=== PATIENT | female | born 1935 | race Caucasian/White ===

== ENCOUNTER 2017-07-21 11:39 | Inpatient (IN) | payer OTHER ==
[2017-07-21] VITALS (7 sets, daily range): BP systolic 100–141; BP diastolic 41–69
[~2017-07-21] VITALS: Ht 160 cm; Wt 58.1 kg
[2017-07-21] MEDS ORDERED: THYROID MED (11:54)
[2017-07-21] MEDS ORDERED: BIPOLAR MED (11:54)
[2017-07-21 12:36] LABS: ANION GAP 5 mmol/L (7-16); BUN 17 mg/dL (7-18); CALCIUM 8.7 mg/dL (8.5-10.1); CHLORIDE 106 mmol/L (98-107); CO2 31 mmol/L (21-32); CREATININE 1.6 mg/dL (0.6-1.3); GLUCOSE 97 mg/dL (70-99); POTASSIUM 4.6 mmol/L (3.5-5.1); SODIUM 142 mmol/L (136-145)
[2017-07-21 12:38] LABS: HEMATOCRIT 41.3 % (37.0-47.0); HEMOGLOBIN 13.6 gm/dL (12.0-15.0); MCH 30.8 pg (26.0-34.0); MCHC 32.9 g/dL (28.0-37.0); MCV 93.6 fL (80.0-100.0); MPV 8.2 fl. (7.2-11.1); NUCLEATED RBCS 0 /100WBC; PLATELET COUNT* 227 thou/uL (150-400); RBC 4.41 mil/uL (4.20-5.00); RDW-CV 17.1 % (10.5-14.5); WBC 11.4 thou/uL (4.0-11.0)
[2017-07-21 12:43] LABS: ALBUMIN 3.2 g/dL (3.4-5.0); ALKALINE PHOSPHATASE 100 U/L (46-116); LIPASE 79 U/L (73-393); SGOT 27 U/L (15-37); SGPT 22 U/L (30-65); TOTAL BILIRUBIN 0.4 mg/dL (<0.1-1.0); TOTAL PROTEIN 6.8 g/dL (6.4-8.2); TROPONIN-I LEVEL <0.06 ng/mL (<0.06)
[2017-07-21 13:19] LABS: ABSOLUTE EOSINOPHILS 0.1 thou/uL (0.0-0.7); ABSOLUTE LYMPHOCYTES 1.1 thou/uL (0.8-5.3); ABSOLUTE MONOCYTES 0.2 thou/uL (0.0-1.2); ABSOLUTE NEUTROPHILS 9.9 thou/uL (1.6-8.1); ANISOCYTOSIS 1+; PLATELET ESTIMATE ADEQUATE
[2017-07-21 13:37] LABS: URINE BILIRUBIN NEGATIVE (Negative); URINE BLOOD NEGATIVE (Negative); URINE CLARITY CLEAR; URINE COLOR STRAW; URINE GLUCOSE-RANDOM NEGATIVE (Negative); URINE KETONES NEGATIVE (Negative); URINE LEUKOCYTES NEGATIVE (Negative); URINE NITRITE POSITIVE (Negative); URINE PROTEIN NEGATIVE (Negative); URINE UROBILINOGEN 0.2 E.U./dl (0.2-1.0)
[2017-07-21 13:51] LABS: SQUAMOUS 0-3 Few /LPF (0-3)
[2017-07-21 13:52] LABS: BACTERIA 1-9 Few /HPF (None Seen); CASTS None Seen /LPF (None Seen); CRYSTALS None Seen /LPF (None Seen); MUCUS None Seen strn/LPF (None Seen); URINE RBC 0-2 Rare /HPF (0-2); URINE WBC None Seen /HPF (0-5)
[2017-07-21 14:52] LABS: PROTIME 10.1 Seconds (9.20-11.50)
[2017-07-21] MEDS ORDERED: SYNTHROID50 MCG PO (15:37)
[2017-07-21] MEDS ORDERED: LAMICTAL100 MG PO (15:37)
[2017-07-22] VITALS (9 sets, daily range): BP systolic 87–125; BP diastolic 43–72
--- NOTE | 2017-07-22 11:48 | EKG ---
[place] [address] ELECTROCARDIOGRAM REPORT Name: JAQUELINE DALEY Room: [address] IN M.R.#: [id number] Admission: 07/21/17 Attend Phys: Tre Quinonez MD Discharge: Date of : 35 Report #: [id number] THIS REPORT FOR: //name// [facility] Test Date: 2017-07-21 Test Time: 15:19:45 Pat Name: JAQUELINE DALEY Department: Room: [address] Gender: F Equalizer Operator: 27 : 1935 Requested By: Koby Hoskins Order Number: [id number] Reading MD: Raúl Donaldson Measurements Intervals [place] Rate: 68 P: WI: QRS: 53 QRSD: 108 T: 58 QT: 457 QTc: 487 Interpretive Statements Normal Sinus Rhythm, PACs Abnormal R-wave progression, early transition Minimal ST elevation, anterior leads Borderline prolonged QT interval No previous ECG available for comparison Electronically Signed On 07-22-2017 11:48:31 CDT by Raúl Donaldson [email or web address] <ELECTRONICALLY SIGNED> By: Raúl Donaldson MD, [facility] 07/22/17 1148 1519 1519 Raúl Donaldson MD, [facility] /EPI
--- NOTE | 2017-07-22 13:43 | 2DMMODE ---
[place] [address] 2 D/M-MODE ECHOCARDIOGRAM Name: JAQUELINE DALEY Room: [address] IN [facility]#: [id number] Admission: 07/21/17 Attend Phys: Tre Quinonez, Discharge: Date of : 35 Date of Service: 07/22/17 1343 Report #: [id number] THIS REPORT FOR: //name// APPROVED REPORT Study performed: 07/22/2017 10:13:20 EXAM: Comprehensive 2D, Doppler, and color-flow Echocardiogram Patient Location: In-Patient Room #: [facility] Status: routine BSA: 1.60 HR: 48 bpm BP: 125/59 mmHg Rhythm: Atrial Fibrillation Other Information Technically limited study due to off axis imaging. Indications Atrial Fibrillation 2D Dimensions LVEF(%): 62.68 (>50%) LVOT Diam: 18.60 (18-24mm) LVDd: 38.62 mm PWd: 8.44 (7-11mm) LVDs: 25.75 (25-40mm) Aortic Root: 25.45 mm Sharif's LVEF: 62.68 % Volumes Left Atrial Volume (Systole) LA ESV Index: 19.40 mL/m2 Aortic Valve AoV Peak Alberto.: 1.32 m/s AO Peak Gr.: 6.93 mmHg LVOT Max P.51 mmHg AO Mean Gr.: 3.67 mmHg LVOT Mean P.05 mmHg LVOT Max V: 0.79 m/s AO V2 VTI: 25.66 cm LVOT Mean V: 0.47 m/s WILLIAN (VTI): 1.61 cm2 LVOT V1 VTI: 15.18 [place] [address] 2 D/M-MODE ECHOCARDIOGRAM Name: EDIJAQUELINE Rm Room: [address] IN .R.#: [id number] Admission: 07/21/17 Attend Phys: Tre Quinonez, Discharge: Date of : 35 Date of Service: 07/22/17 1343 Report #: [id number] Lateral E' Alberto.: 0.16 m/s Pulmonary Valve PV Peak Alberto.: 0.65 m/s PV Peak Gr.: 1.68 mmHg Tricuspid Valve TR Peak Gr.: 29.16 mmHg RVSP: 34.00 mmHg Left Ventricle The left ventricle is normal size. There is normal LV segmental wall motion. Regional wall motion is not well visualized. There is normal left ventricular wall thickness. Left ventricular systolic function is normal. The left ventricular ejection fraction is within the normal range. LVEF is 50-55%. This study is not technically sufficient to allow evaluation of the LV diastolic function due to atrial fibrillation. Right Ventricle The right ventricle is normal size. The right ventricular systolic function is normal. Atria The left atrium size is normal. The right atrium size is normal. Aortic Valve Mild aortic valve sclerosis. Aortic valve is not well visualized. No aortic regurgitation is present. Mild aortic stenosis. Mitral Valve Mitral valve leaflets are thickened. Severe mitral annular calcification. Mild mitral regurgitation. No evidence of mitral valve stenosis. Tricuspid Valve The tricuspid valve is normal in structure. Mild tricuspid regurgitation. The RVSP is 30-35 mmHg. Pulmonic Valve The pulmonary valve is normal in structure. There is no pulmonic valvular regurgitation. Great Vessels The aortic root is normal in size. IVC is normal in size and collapses with >50% [place] [address] 2 D/M-MODE ECHOCARDIOGRAM Name: JAQUELINE DALEY Room: [address] IN ..#: [id number] Admission: 07/21/17 Attend Phys: Tre Quinonez, Discharge: Date of : 35 Date of Service: 07/22/17 1343 Report #: [id number] Pericardium There is no pericardial effusion. <Conclusion> LVEF is 50-55%. There is normal LV segmental wall motion. Regional wall motion is not well visualized. Mild aortic stenosis. No aortic regurgitation is present. Mild tricuspid regurgitation. The RVSP is 30-35 mmHg. No evidence of mitral valve stenosis. Mild mitral regurgitation. <ELECTRONICALLY SIGNED> By: Raúl Donaldson MD, FACC 07/22/17 1343 42 42 Raúl Donaldson MD, FACC /INF
[2017-07-23] VITALS: BP 113/53
[2017-07-23 04:00] VITALS: BP 126/56
[2017-07-23 04:08] LABS: HEMATOCRIT 37.6 % (37.0-47.0); HEMOGLOBIN 12.3 gm/dL (12.0-15.0); MCH 30.9 pg (26.0-34.0); MCHC 32.7 g/dL (28.0-37.0); MCV 94.8 fL (80.0-100.0); MPV 8.4 fl. (7.2-11.1); RBC 3.97 mil/uL (4.20-5.00); RDW-CV 17.1 % (10.5-14.5); WBC 10.4 thou/uL (4.0-11.0)
[2017-07-23 04:16] LABS: CALCIUM 7.9 mg/dL (8.5-10.1); CREATININE 1.3 mg/dL (0.6-1.3); POTASSIUM 4.6 mmol/L (3.5-5.1)
--- NOTE | 2017-07-23 07:57 | CON ---
[address] [address] CONSULTATION Name: JAQUELINE DALEY Room: [address] IN M.R.#: [id number] Admission: 07/21/17 Attend Phys: Tre Quinonez MD Discharge: Date of : 35 Report #: [id number] THIS REPORT FOR: //name// CC: Tre Arcos DICTATED BY: Lucas Tripp REASON FOR CONSULTATION: Left hip pain. HISTORY OF PRESENT ILLNESS: The patient is an 81-year-old female who came to [facility] today after a mechanical fall. She tripped and hit her head as well as her left hip. She had severe pain thereafter. She had a laceration over her forehead that was closed in the Emergency Room. X-rays in the Emergency Room revealed a subcapital valgus impacted femoral neck fracture. She lives with her daughter, who is her DPOA. She has a history of dementia as well as bipolar disease and thyroid disease. She denies any recent illnesses or any other significant areas of pain. PAST MEDICAL HISTORY: Thyroid disease, dementia and bipolar. PAST SURGICAL HISTORY: Lumpectomy, cholecystectomy and appendectomy. SOCIAL HISTORY: The patient is a community ambulator primarily in her house, does not use any assistive device. She denies any tobacco abuse or alcohol abuse. ALLERGIES: SULFA. MEDICATIONS: Reported Synthroid. REVIEW OF SYSTEMS: Ten-point review is negative, with the exception of HPI. LABORATORY DATA: White count 11.4, hemoglobin 13.6 and platelets 227,000. Urinalysis does not show any evidence of UTI. PT/INR is pending. IMAGING: Views of the pelvis and left hip demonstrate a valgus-impacted femoral neck fracture, with no significant displacement. PHYSICAL EXAMINATION: GENERAL: The patient is alert, in no acute distress. VITAL SIGNS: In the Emergency Room, temperature is 36.1, pulse 87, respirations 16 and blood pressure 141/69. HEAD: Normocephalic and she does have a laceration over the left brow, which has been closed with suture. EYES: Pupils equal and reactive to light. ENT: [place] [address] CONSULTATION Name: JAQUELINE DALEY Room: [address] IN [facility]#: [id number] Admission: 07/21/17 Attend Phys: Tre Quinonez MD Discharge: Date of : 35 Report #: [id number] NECK: Supple, full range of motion. CHEST: Equal chest rise bilaterally. LUNGS: No respiratory distress. HEART: Good perfusion. ABDOMEN: Soft. SKIN: Warm and dry. NEUROLOGIC: Cranial nerves 2-12 grossly intact. No focal deficits. MUSCULOSKELETAL: Left hip shows no gross abnormality. She does have significant pain with internal or external rotation of the hip and positive log roll. Skin is intact over the lateral aspect of the hip. Compartments are soft and nontender. EHL, dorsiflexion and plantarflexion all have 5/5 strength. Sensation intact to light touch diffusely about the lower extremity. She has brisk capillary refill. IMPRESSION: 1. Left subcapital femoral neck fracture, valgus impacted. 2. Mechanical fall. TREATMENT PLAN: At this time, we recommend operative stabilization of her femoral neck fracture. Plan will be for cannulated screw fixation of this fracture and possible hemiarthroplasty should the fracture displace in the meantime. We discussed this at length with her DPOA, which is her daughter, who was present throughout the visit. We discussed the risks, benefits, complications, alternatives and indications to surgery, including but not limited to bleeding, infection, neurovascular injury, continued pain, need for further surgery, nonunion, malunion, hemiarthroplasty, hardware failure, DVT, PE and the inherent risk of anesthesia and she is willing to proceed. Consent is available in the chart. The patient is a DNR. All her questions were answered. <ELECTRONICALLY SIGNED> By: Koby Hoskins DO 07/23/17 0757 1516 0234Ckody Hoskins DO /janette
--- NOTE | 2017-07-23 07:57 | OP ---
[address] [address] OPERATIVE REPORT Name: JEFRY DALEYJORIE Sujey Room: [address] IN .R.#: [id number] Admission: 07/21/17 Attend Phys: Tre Quinonez MD Discharge: Date of : 35 Report #: [id number] THIS REPORT FOR: //name// CC: Tre Arcos DICTATED BY: Lucas Tripp PREOPERATIVE DIAGNOSIS: Left valgus impacted femoral neck fracture. POSTOPERATIVE DIAGNOSIS: Left valgus impacted femoral neck fracture. PROCEDURE: Left hip in situ cannulated screw fixation. SURGEON: Koby Hoskins DO ELECTRICAL PRODUCTS ENGINEER: Lucas Tripp DO ANESTHESIA: General. ESTIMATED BLOOD LOSS: 25 mL. SPECIMENS: None. COMPLICATIONS: None. CONDITION: The patient is stable to PACU. DRAINS: None. PREOP ANTIBIOTICS: 1 gram Ancef IV prior to incision. INDICATIONS: The patient is an 81-year-old female who sustained mechanical fall today and diagnosed with a valgus impacted femoral neck fracture. She was unable to ambulate secondary to pain. She is cleared for surgery medically. Her daughter is DPOA secondary to dementia and bipolar disorder. Both the patient and the daughter were informed of the risks, benefits, complications, alternatives and indications to operative fixation of the left hip versus hemiarthroplasty including but not limited to bleeding, infection, vascular injury, continued pain, need for further surgery, DVT, PE, need for hemiarthroplasty, malunion, nonunion, hardware failure and adherence to anesthesia. They are willing to proceed. DESCRIPTION OF PROCEDURE: The patient was seen in preoperative holding area and operative site initialed by surgeon. She was brought back to operative suite, placed in a well-padded table in supine position. General anesthesia was induced. The right lower extremity was positioned in the [employer] [address] OPERATIVE REPORT Name: JAQUELINE DALEY Room: [address] IN [facility]#: [id number] Admission: 07/21/17 Attend Phys: Tre Quinonez MD Discharge: Date of : 35 Report #: [id number] the left lower extremity positioned in the traction boot on the fracture table. The left hip was sterilely prepped and draped in normal fashion. Timeout was performed in usual fashion. All attendants were in agreement. Intraoperative fluoroscopy was used throughout the case. Initial x-rays were obtained showing continued position of valgus impaction of the left femoral neck. There is no displacement. A 10 blade scalpel was used to make incision through the skin and the iliotibial band. Blunt dissection was carried down to bone. Three guidewires were placed in succession in the inverted triangle fashion utilizing the guide. The inferior cannulated screw was placed along the inferior cortex of the femoral neck. AP and lateral fluoroscopic images confirmed adequate position in the subchondral bone of all 3 pins. All 3 pins were measured appropriately and the outer cortex of the bone was reamed over all 3 pins. Three partially threaded cannulated screws with washers were inserted over the existing pins with excellent purchase in the subchondral bone. The pins were removed and final fluoroscopic images were obtained showing excellent position. The wound was thoroughly irrigated with normal saline. The IT band was closed with 0 Vicryl in a [id number] fashion and the subcutaneous tissue closed with 2-0 Vicryl in simple inverted interrupted fashion followed by melvin on the skin. Dressings were placed in the form of Mepilex AG dressing, ABDs, and tape. Prior to dressing, 30 mL of 0.25% Marcaine plain were injected in the soft tissue. Sponge and needle counts were correct x 2. Dr. Hoskins was present through all critical aspects of surgery. The patient was awoken and brought to PACU in stable fashion. She tolerated the procedure well. <ELECTRONICALLY SIGNED> By: Koby Hoskins DO 07/23/17 0757 1721 1800Koby Hoskins DO /nt
[2017-07-23 08:00] VITALS: BP 96/51
[2017-07-23 12:00] VITALS: BP 93/42
[2017-07-23 17:06] VITALS: BP 93/52
[2017-07-24 00:41] VITALS: BP 132/54
[2017-07-24 04:27] VITALS: BP 106/55
[2017-07-24 04:55] LABS: HEMATOCRIT 36.7 % (37.0-47.0); MCH 30.6 pg (26.0-34.0); MCHC 32.5 g/dL (28.0-37.0); MPV 8.2 fl. (7.2-11.1); RBC 3.91 mil/uL (4.20-5.00); RDW-CV 17.5 % (10.5-14.5); WBC 10.4 thou/uL (4.0-11.0)
[2017-07-24 05:03] LABS: ALBUMIN 2.2 g/dL (3.4-5.0); CREATININE 1.2 mg/dL (0.6-1.3); POTASSIUM 4.7 mmol/L (3.5-5.1); TOTAL BILIRUBIN 0.7 mg/dL (<0.1-1.0); TOTAL PROTEIN 5.5 g/dL (6.4-8.2)
[2017-07-24 08:00] VITALS: BP 112/56
[2017-07-24 13:13] VITALS: BP 104/52
[2017-07-24 16:40] VITALS: BP 127/58
[2017-07-24 20:00] VITALS: BP 150/69
[2017-07-25 00:08] VITALS: BP 108/47
[2017-07-25 04:00] VITALS: BP 97/44
[2017-07-25 08:00] VITALS: BP 109/42
[2017-07-25 11:50] VITALS: BP 140/62
[2017-07-25 15:43] VITALS: BP 120/52
[2017-07-26] VITALS: BP 129/62
[2017-07-26 04:00] VITALS: BP 153/69
[2017-07-26 05:03] LABS: HEMATOCRIT 36.4 % (37.0-47.0); MCH 31.2 pg (26.0-34.0); MCHC 32.9 g/dL (28.0-37.0); MCV 94.9 fL (80.0-100.0); MPV 7.8 fl. (7.2-11.1); RBC 3.84 mil/uL (4.20-5.00); RDW-CV 16.8 % (10.5-14.5); WBC 8.2 thou/uL (4.0-11.0)
[2017-07-26 05:35] LABS: CALCIUM 8.2 mg/dL (8.5-10.1); MAGNESIUM 1.9 mg/dL (1.8-2.4); POTASSIUM 4.4 mmol/L (3.5-5.1)
[2017-07-26 07:45] VITALS: BP 106/54
[2017-07-26 12:00] VITALS: BP 132/64
[2017-07-26 16:00] VITALS: BP 153/61
[2017-07-26 20:00] VITALS: BP 147/74
[2017-07-27] VITALS: BP 145/67
[2017-07-27 04:00] VITALS: BP 143/71
[2017-07-27 04:34] LABS: ABSOLUTE BASOPHILS 0.1 thou/uL (0.0-0.2); ABSOLUTE EOSINOPHILS 0.2 thou/uL (0.0-0.7); ABSOLUTE LYMPHOCYTES 1.7 thou/uL (0.8-5.3); ABSOLUTE MONOCYTES 0.6 thou/uL (0.0-1.2); ABSOLUTE NEUTROPHILS 4.3 thou/uL (1.6-8.1); BASOPHILS 0.8 %; EOSINOPHILS 2.8 %; HEMATOCRIT 35.1 % (37.0-47.0); HEMOGLOBIN 11.6 gm/dL (12.0-15.0); LYMPHOCYTES 25.4 %; MCH 31.1 pg (26.0-34.0); MCHC 32.9 g/dL (28.0-37.0); MCV 94.5 fL (80.0-100.0); MONOCYTES 8.1 %; NUCLEATED RBCS 0 /100WBC; PLATELET COUNT* 244 thou/uL (150-400); POLYS 62.9 %; RBC 3.71 mil/uL (4.20-5.00); RDW-CV 16.8 % (10.5-14.5); WBC 6.8 thou/uL (4.0-11.0)
[2017-07-27 05:07] LABS: CALCIUM 7.9 mg/dL (8.5-10.1); CREATININE 0.9 mg/dL (0.6-1.3); POTASSIUM 4.3 mmol/L (3.5-5.1); TOTAL BILIRUBIN 0.5 mg/dL (<0.1-1.0); TOTAL PROTEIN 4.9 g/dL (6.4-8.2)
[2017-07-27 11:20] VITALS: BP 142/78
--- NOTE | 2017-07-27 17:34 | CARD ---
[address] [address] CARDIAC CATH REPORT Name: JAQUELINE DALEY Sujey Room: [address] IN [facility]#: [id number] Admission: 07/21/17 Attend Phys: Tre Quinonez MD Discharge: Date of : 35 Report #: [id number] THIS REPORT FOR: //name// APPROVED REPORT Study performed: 07/27/2017 12:32:33 Patient Status: In-Patient Room #: Event Personnel: Curt Su Sales Enablement Specialist, Josie Garces RN Spearer, Luly Tovar Monitor, Cristi Light (R) Scrub Exam: Insertion of Dual Chamber Permanent Pacemaker Indications: Complete Heart Block The patient is a 81 year-old female with a history of hip fracture. Conscious Sedation Start time: 13:23 End Time: 15:11 Fentanyl 25.0 mcg Versed 4.0 mg Implanted Devices: dual chamber biotronic pacemaker Procedure The patient underwent informed consent. We discussed the details of the procedure including the risks, which include, but not limited to bleeding, infection, vascular damage, cardiac perforation, and pneumothorax. She understood these risks and was willing to proceed. As such, she was brought to the EP/Cardiac Catheterization laboratory in a fasting and sedated state and prepped and draped in a sterile fashion, received IV antibiotics prior to initiation of the procedure and a venogram was performed showing patency of the left axillary vein. The patient underwent conscious sedation, with no related complications. The patient was brought to the EP/Cardiac Catheterization laboratory and the left chest and shoulder were prepped and draped in a sterile manner. During this case, Fluoroscopy and low osmolar contrast were used for imaging. The left subclavian region was infiltrated with 2% Lidocaine subcutaneous anesthesia. A transverse incision was made in the left upper chest cavity. The subcutaneous pocket was formed via blunt dissection. Percutaneous venous access was achieved and [place] [address] CARDIAC CATH REPORT Name: AJQUELINE DALEY Room: [address] IN [facility].#: [id number] Admission: 07/21/17 Attend Phys: Tre Quinonez MD Discharge: Date of : 35 Report #: [id number] the left Subclavian vein. Sheaths were positions using the modified Seldinger technique Through the introducer sheaths the atrial and ventricular lead wires were positioned in the right atrial appendage and right ventricular apex respectively. Utilizing fluoroscopic guidance, the atrial and ventricular lead wires were advanced over the wires and positioned in the right atria and right ventricle respectively. Capturing and sensing thresholds were verified. Arterial blood was first obtained. The micopuncture needle withdrawn and hemostasis achieved by direct pressure. The needle was directed more superior and venous blood was obtained. Electrode Parameters P Wave: 4.3 mv R Wave: 16.4 mv Atrial Threshold: 1.2 v @ 0.4 ms Ventricular Threshold: 0.4 v @ 0.4 ms Atrial Resistance: 429 ohm Ventricular Resistance: 663 ohm Dual Chamber The atrial and ventricular leads were then secured using 0 silk sutures. The subcutaneous pocket was irrigated with ancef antibiotic solution.The atrial and ventricular leads were attached to the appropriate receptacles on the pulse generator and set screws firmly tightened to insure adequate contact and stability. The lead and pulse generator were placed into the subcutaneous pocket. Sharp and sponge counts were confirmed to be correct. At this time the pocket was closed subcutaneously with a 2.0 Vicryl and the skin was closed with a 4.0 Vicryl. The operative site was dressed in sterile fashion with skin affix and the patient was transferred to the floor in stable condition. Complications The patient tolerated the procedure well and there were no complications associated with the procedure. Findings Estimated Blood Loss: [address] [place] [address] CARDIAC CATH REPORT Name: JAQUELINE DALEY Room: [address]#: [id number] Admission: 07/21/17 Attend Phys: Tre Quinonez MD Discharge: Date of : 35 Report #: [id number] successful placement of a dual chamber biotronic pacemaker and leads. <ELECTRONICALLY SIGNED> By: Curt Su MD, [facility] 07/27/17 1734 1734 1734David David Su MD, [facility] /INF
[2017-07-27 20:56] VITALS: BP 102/64
[2017-07-27 23:58] VITALS: BP 123/64
[2017-07-28 03:38] VITALS: BP 139/59
[2017-07-28 05:00] LABS: ABSOLUTE EOSINOPHILS 0.2 thou/uL (0.0-0.7); ABSOLUTE LYMPHOCYTES 1.5 thou/uL (0.8-5.3); ABSOLUTE MONOCYTES 0.7 thou/uL (0.0-1.2); BASOPHILS 0.6 %; EOSINOPHILS 2.5 %; HEMATOCRIT 32.3 % (37.0-47.0); HEMOGLOBIN 10.6 gm/dL (12.0-15.0); MCHC 32.8 g/dL (28.0-37.0); MCV 94.5 fL (80.0-100.0); MONOCYTES 8.8 %; MPV 7.9 fl. (7.2-11.1); NUCLEATED RBCS 0 /100WBC; PLATELET COUNT* 227 thou/uL (150-400); POLYS 68.1 %; RBC 3.41 mil/uL (4.20-5.00); RDW-CV 16.5 % (10.5-14.5); WBC 7.4 thou/uL (4.0-11.0)
[2017-07-28 05:07] LABS: ALBUMIN 2.1 g/dL (3.4-5.0); CALCIUM 8.1 mg/dL (8.5-10.1); POTASSIUM 3.8 mmol/L (3.5-5.1); TOTAL BILIRUBIN 0.4 mg/dL (<0.1-1.0); TOTAL PROTEIN 5.3 g/dL (6.4-8.2)
[2017-07-28 08:00] VITALS: BP 111/61
[2017-07-28 09:58] VITALS: BP 111/61
[2017-07-28] MEDS ORDERED: HYDROCODONE-AP1 EAC6 PO (11:00)
[2017-07-28] MEDS ORDERED: ELIQUIS2.5 MG PO (11:00)
--- NOTE | 2017-07-28 11:40 | EKG ---
[place] [address] ELECTROCARDIOGRAM REPORT Name: JAQUELINE DALEY Room: [address] ADM IN M.R.#: [id number] Admission: 07/21/17 Attend Phys: Tre Quinonez MD Discharge: Date of : 35 Report #: [id number] THIS REPORT FOR: //name// [facility] Test Date: 2017-07-28 Test Time: 08:12:20 Pat Name: JAQUELINE DALEY Department: Room: [address] Gender: F Testing Tech: BS : 1935 Requested By: Curt Su Order Number: [id number] Dread MD: Curt Su Measurements Intervals [place] Rate: 86 P: 88 NM: 201 QRS: -58 QRSD: 142 T: QT: QTc: 0 Interpretive Statements Atrial-sensed ventricular-paced complexes No further analysis attempted due to paced rhythm Compared to ECG 07/21/2017 15:19:45 paced rhythm now noted Electronically Signed On 07-28-2017 11:40:19 CDT by Curt Su [email or web address] <ELECTRONICALLY SIGNED> By: Curt Su MD, [facility] 07/28/17 1140 0812 0812 Curt Su MD, [facility] /EPI
[2017-07-28 12:00] VITALS: BP 131/70
--- NOTE | 2017-08-05 08:10 | CON ---
[address] [address] CONSULTATION Name: JAQUELINE DALEY Room: [address] IN .R.#: [id number] Admission: 07/21/17 Attend Phys: Tre Quinonez MD Discharge: 07/28/17 Date of : 35 Report #: [id number] THIS REPORT FOR: //name// CC: Tre Arcos DATE OF SERVICE: 07/22/2017 REASON FOR CONSULTATION: Bradycardia. HISTORY OF PRESENT ILLNESS: The patient is an 81-year-old female who presented with worsening hip pain and ultimately required hip surgery. She tripped apparently and fell at her apartment where she does live alone. It is in a nursing facility though. I am asked to see her because on the heart monitor, she initially presented what was felt to be atrial fibrillation and then overnight on monitor, she has been in a sinus rhythm with AV block and occasional bradycardia with pulses as low as the mid 40s overnight. Presently, she is in a sinus rhythm with third degree AV block with heart rates in the 80s. At times she is conducting 2:1. She is without complaints of orthopnea or PND and had no presymptoms of chest pain or pressure. She reports no dizziness spells. She has dementia and her daughter is her durable power of employment law attorney. Most of her history was obtained from chart record, but she can answer simple questions and does not appear that she has been short of breath or having any chest discomfort. It appears based on chart record that she does not have an underlying history of heart disease. PAST MEDICAL HISTORY: Status post orthopedic surgery for a left valgus impacted femoral neck fracture this hospitalization. She has underlying history of thyroid disease, dementia, bipolar disorder. PAST SURGICAL HISTORY: As above. She also had a prior gallbladder surgery, bipolar disorder, dementia and hypothyroidism. SOCIAL HISTORY: She is a nonsmoker. She does not drink. ALLERGIES: SULFA drugs. REVIEW OF SYSTEMS: CARDIOVASCULAR: Denies chest pain or pressure. ORTHOPEDICS: Positive as above. NEUROLOGIC: Denies slurred speech, syncope, seizures. Denies headaches, blurry vision. GASTROINTESTINAL: [place] [address] CONSULTATION Name: JAQUELINE DALEY Room: [address]#: [id number] Admission: 07/21/17 Attend Phys: Ter Quinonez MD Discharge: 07/28/17 Date of : 35 Report #: [id number] SKIN: No rashes, no edema. EYES: Denies any blurred vision or loss of vision. THROAT: Denies any dysphagia. HEMATOLOGIC: No anemia or bleeding disorders. RENAL: No history of kidney failure. ENDOCRINE: She is not known to be a diabetic. PHYSICAL EXAMINATION: VITAL SIGNS: Blood pressure is 125/59, O2 sat is on 2 liters and is 95-99%. GENERAL: This is a thin, cachectic, elderly female. She is poor historian. She is in no apparent distress. HEENT: Eyes: EOMs are intact. There is a scar in her left forehead with clean, dry sutures. NECK: There is no jugular venous distention. CARDIOVASCULAR: Regular. I cannot hear any murmur or rub. LUNGS: Clear to auscultation. ABDOMEN: Nontender. EXTREMITIES: There is no peripheral edema. There is peripheral wasting. LABORATORY DATA: Hemoglobin is 13.6, white blood cell count 11.4, platelet count is 227,000. INR is 1.0. Hemoglobin is 13.6. CT of the brain demonstrated prominence of ventricle and sulci compatible with atrophy. There is decreased attenuation in the periventricular white matter. No evidence of intracranial hemorrhage or depressed skull fracture. Hemoglobin is 13.6, white blood cell count is 11.4, platelet count is 227,000. Sodium is 142, potassium 4.6, chloride is 106, CO2 is 31, BUN is 17, creatinine is 1.6. INR is 1.0. IMPRESSION: 1. Third degree atrioventricular block. 2. Bradycardia. 3. Status post fall. 4. Status post hip surgery. 5. Dementia. At this point in time, after discussions with the patient, we will need to speak with her daughter regarding what their feelings are in regards to her functional capacity going forward and whether or not she would be a good candidate for a permanent pacemaker implantation. It does not appear that she was on any AV bro acting drugs and has underlying conduction disease. At this point, given her fall history if she does have any atrial arrhythmias, I would not recommend anticoagulation, but it does not appear that she was in atrial fibrillation at the time of presentation. <ELECTRONICALLY SIGNED> By: Curt Su MD, FACC 08/05/17 0810 0947 1314Raúl Donaldson MD, FACC /nt
== END 2017-07-28 15:25 | DRG 480 ==
LOC: M.ERS 11:39 → M.TBA-ER 13:27 → M.2W 13:27 → M.ORTHSURG 13:27 → M.2W 18:25
PROVIDERS: Family Medicine; Internal Medicine; Orthopaedic Surgery; Physician Assistant; ADMIT Internal Medicine
PROC: 0HQ1XZZ Repair Face Skin, External Approach (ICD-10-PCS; 2017-07-21)
PROC: 0QS704Z Reposition Left Upper Femur with Internal Fixation Device, Open Approach (ICD-10-PCS; 2017-07-21)
PROC: 02H63JZ Insertion of Pacemaker Lead into Right Atrium, Percutaneous Approach (ICD-10-PCS; principal; 2017-07-27)
PROC: 02HK3JZ Insertion of Pacemaker Lead into Right Ventricle, Percutaneous Approach (ICD-10-PCS; principal; 2017-07-27)
PROC: 0JH606Z Insertion of Pacemaker, Dual Chamber into Chest Subcutaneous Tissue and Fascia, Open Approach (ICD-10-PCS; principal; 2017-07-27)
DX: M80.052A Age-related osteoporosis with current pathological fracture, left femur, initial encounter for fracture (principal); N17.0 Acute kidney failure with tubular necrosis; G93.40 Encephalopathy, unspecified; I44.2 Atrioventricular block, complete; E44.0 Moderate protein-calorie malnutrition; J98.11 Atelectasis; F03.90 Unspecified dementia, unspecified severity, without behavioral disturbance, psychotic disturbance, mood disturbance, and anxiety; N18.9 Chronic kidney disease, unspecified; F31.9 Bipolar disorder, unspecified; Z66 Do not resuscitate; E03.9 Hypothyroidism, unspecified; R53.81 Other malaise; G31.9 Degenerative disease of nervous system, unspecified; S01.81XA Laceration without foreign body of other part of head, initial encounter; I48.91 Unspecified atrial fibrillation; W01.0XXA Fall on same level from slipping, tripping and stumbling without subsequent striking against object, initial encounter; Y93.89 Activity, other specified; Y92.038 Other place in apartment as the place of occurrence of the external cause; Y99.8 Other external cause status; Z68.22 Body mass index [BMI] 22.0-22.9, adult; Z90.49 Acquired absence of other specified parts of digestive tract; Z98.890 Other specified postprocedural states; Z88.2 Allergy status to sulfonamides; Z79.899 Other long term (current) drug therapy

== ENCOUNTER → 2017-09-07 | Outpatient (CLI) | payer OTHER ==
[~2017-09-07] MED LIST: BIPOLAR MED; ELIQUIS2.5 MG PO; HYDROCODONE-AP1 EAC6 PO; LAMICTAL100 MG PO; SYNTHROID50 MCG PO; THYROID MED
== END ==
LOC: M.RAD 09:45
DX: R13.12 Dysphagia, oropharyngeal phase (principal); R09.89 Other specified symptoms and signs involving the circulatory and respiratory systems

== ENCOUNTER 2018-02-13 18:21 | Inpatient (IN) | payer OTHER ==
[~2018-02-13] VITALS: Ht 160 cm; Wt 53.1 kg
[2018-02-13 18:23] VITALS: BP 140/70
[2018-02-13 18:50] LABS: ABSOLUTE BASOPHILS 0.1 thou/uL (0.0-0.2); ABSOLUTE EOSINOPHILS 0.1 thou/uL (0.0-0.7); ABSOLUTE LYMPHOCYTES 2.3 thou/uL (0.8-5.3); ABSOLUTE MONOCYTES 0.8 thou/uL (0.0-1.2); ABSOLUTE NEUTROPHILS 6.3 thou/uL (1.6-8.1); BASOPHILS 0.8 %; HEMATOCRIT 37.3 % (37.0-47.0); HEMOGLOBIN 11.7 gm/dL (12.0-15.0); LYMPHOCYTES 24.3 %; MCHC 31.4 g/dL (28.0-37.0); MCV 89.1 fL (80.0-100.0); MONOCYTES 8.5 %; MPV 7.7 fl. (7.2-11.1); NUCLEATED RBCS 0 /100WBC; PLATELET COUNT* 249 thou/uL (150-400); POLYS 65.4 %; RBC 4.18 mil/uL (4.20-5.00); RDW-CV 18.5 % (10.5-14.5); WBC 9.6 thou/uL (4.0-11.0)
[2018-02-13 19:01] LABS: CALCIUM 8.7 mg/dL (8.5-10.1); CREATININE 2.4 mg/dL (0.6-1.3); POTASSIUM 3.9 mmol/L (3.5-5.1)
[2018-02-13 19:06] LABS: ALBUMIN 3.3 g/dL (3.4-5.0); TOTAL BILIRUBIN 0.3 mg/dL (<0.1-1.0); TOTAL PROTEIN 6.7 g/dL (6.4-8.2)
[2018-02-13 20:52] LABS: URINE BILIRUBIN NEGATIVE (Negative); URINE BLOOD TRACE (Negative); URINE CLARITY CLEAR; URINE COLOR YELLOW; URINE GLUCOSE-RANDOM NEGATIVE (Negative); URINE KETONES NEGATIVE (Negative); URINE LEUKOCYTES-REFLEX 2+ (Negative); URINE NITRITE-REFLEX POSITIVE (Negative); URINE PROTEIN NEGATIVE (Negative); URINE SPECIFIC GRAVITY 1.015 (1.005-1.030); URINE UROBILINOGEN 0.2 E.U./dl (0.2-1.0)
[2018-02-13 20:59] LABS: SQUAMOUS >10 Many /LPF (0-3)
[2018-02-13 21:00] LABS: HYALINE CASTS >10 Many /LPF (None Seen); MUCUS 0-3 Light strn/LPF (None Seen)
[2018-02-13 21:01] LABS: CRYSTALS None Seen /LPF (None Seen); URINE RBC 0-2 Rare /HPF (0-2); URINE WBC-REFLEX >25 Many /HPF (0-5)
[2018-02-13 21:34] VITALS: BP 137/62
[2018-02-13 22:00] VITALS: BP 135/63
[2018-02-14 07:36] VITALS: BP 119/53
--- NOTE | 2018-02-14 10:26 | EKG ---
[place] [address] ELECTROCARDIOGRAM REPORT Name: JAQUELINE DALEY Room: [address] ADM [place] .R.#: [id number] Admission: 02/13/18 Attend Phys: Dmitriy Dickey MD Discharge: Date of : 35 Report #: [id number] THIS REPORT FOR: //name// [facility] ED Test Date: 2018-02-13 Test Time: 20:01:54 Pat Name: JAQUELINE DALEY Department: Room: [facility] Gender: F Director Of Design: AP : 1935 Requested By: Axel Cradenas Order Number: [id number] : Curt Su Measurements Intervals [place] Rate: 68 P: 34 FL: 295 QRS: -74 QRSD: 177 T: 85 QT: 479 QTc: 510 Interpretive Statements atrial sensed and Ventricular-paced complexes No further analysis attempted due to paced rhythm Compared to ECG 07/28/2017 08:12:20 rate slowed Electronically Signed On 02-14-2018 10:26:12 BEHAVIORAL HEALTH SPECIALIST by Curt Su [email or web address] <ELECTRONICALLY SIGNED> By: Curt Su MD, FACC 02/14/18 1026 00 00 Curt Su MD, FACC /EPI
[2018-02-14 16:00] VITALS: BP 135/79
[2018-02-15] VITALS: BP 120/67
[2018-02-15 03:44] LABS: ABSOLUTE BASOPHILS 0.1 thou/uL (0.0-0.2); ABSOLUTE EOSINOPHILS 0.2 thou/uL (0.0-0.7); ABSOLUTE LYMPHOCYTES 1.8 thou/uL (0.8-5.3); ABSOLUTE MONOCYTES 0.5 thou/uL (0.0-1.2); ABSOLUTE NEUTROPHILS 3.5 thou/uL (1.6-8.1); BASOPHILS 1.5 %; HEMATOCRIT 31.8 % (37.0-47.0); HEMOGLOBIN 10.1 gm/dL (12.0-15.0); LYMPHOCYTES 30.5 %; MCH 28.6 pg (26.0-34.0); MCHC 31.7 g/dL (28.0-37.0); MCV 90.2 fL (80.0-100.0); MONOCYTES 7.7 %; MPV 7.9 fl. (7.2-11.1); NUCLEATED RBCS 0 /100WBC; PLATELET COUNT* 198 thou/uL (150-400); POLYS 57.3 %; RBC 3.53 mil/uL (4.20-5.00); RDW-CV 18.4 % (10.5-14.5); WBC 6.1 thou/uL (4.0-11.0)
[2018-02-15 04:21] LABS: CALCIUM 8.2 mg/dL (8.5-10.1); POTASSIUM 4.6 mmol/L (3.5-5.1)
[2018-02-15 04:23] LABS: CREATININE 1.4 mg/dL (0.6-1.3)
[2018-02-15 08:15] VITALS: BP 127/65
[2018-02-15 16:00] VITALS: BP 124/62
[2018-02-15 21:56] VITALS: BP 106/54
[2018-02-16 08:02] VITALS: BP 139/64
[2018-02-16 16:47] VITALS: BP 134/75
[2018-02-17 00:34] VITALS: BP 108/58
[2018-02-17 03:55] VITALS: BP 121/62
[2018-02-17 04:16] LABS: ABSOLUTE BASOPHILS 0.1 thou/uL (0.0-0.2); ABSOLUTE EOSINOPHILS 0.3 thou/uL (0.0-0.7); ABSOLUTE LYMPHOCYTES 1.5 thou/uL (0.8-5.3); ABSOLUTE MONOCYTES 0.4 thou/uL (0.0-1.2); ABSOLUTE NEUTROPHILS 3.5 thou/uL (1.6-8.1); BASOPHILS 1.2 %; EOSINOPHILS 5.1 %; HEMATOCRIT 32.6 % (37.0-47.0); HEMOGLOBIN 10.3 gm/dL (12.0-15.0); LYMPHOCYTES 26.1 %; MCH 28.6 pg (26.0-34.0); MCHC 31.7 g/dL (28.0-37.0); MONOCYTES 7.3 %; MPV 7.8 fl. (7.2-11.1); NUCLEATED RBCS 0 /100WBC; PLATELET COUNT* 241 thou/uL (150-400); POLYS 60.3 %; RBC 3.62 mil/uL (4.20-5.00); RDW-CV 18.6 % (10.5-14.5); WBC 5.8 thou/uL (4.0-11.0)
[2018-02-17 04:38] LABS: ALBUMIN 2.4 g/dL (3.4-5.0); CALCIUM 8.6 mg/dL (8.5-10.1); CREATININE 1.2 mg/dL (0.6-1.3); TOTAL BILIRUBIN 0.2 mg/dL (<0.1-1.0); TOTAL PROTEIN 5.3 g/dL (6.4-8.2)
[2018-02-17 09:17] VITALS: BP 132/66
[2018-02-17 16:00] VITALS: BP 143/74
[2018-02-17 19:40] VITALS: BP 115/62
[2018-02-18 08:20] VITALS: BP 101/47
[2018-02-18 14:30] VITALS: BP 101/47
[2018-02-18] MEDS ORDERED: CIPRO250 M2 PO (14:30)
== END 2018-02-18 16:13 | DRG 682 ==
LOC: M.ERS 18:21 → M.TBA-ER 20:01 → M.3W 20:01
PROVIDERS: Nurse Practitioner Family; ADMIT Internal Medicine
DX: N17.9 Acute kidney failure, unspecified (principal); R65.11 Systemic inflammatory response syndrome (SIRS) of non-infectious origin with acute organ dysfunction; N39.0 Urinary tract infection, site not specified; G93.40 Encephalopathy, unspecified; F31.9 Bipolar disorder, unspecified; F03.90 Unspecified dementia, unspecified severity, without behavioral disturbance, psychotic disturbance, mood disturbance, and anxiety; E03.9 Hypothyroidism, unspecified; B96.89 Other specified bacterial agents as the cause of diseases classified elsewhere; W18.39XA Other fall on same level, initial encounter; Y93.89 Activity, other specified; Y92.89 Other specified places as the place of occurrence of the external cause; Y99.8 Other external cause status; Z90.49 Acquired absence of other specified parts of digestive tract; Z88.2 Allergy status to sulfonamides

== ENCOUNTER 2018-06-28 09:38 | Emergency (ER) | payer OTHER ==
[~2018-06-28] VITALS: Ht 152.4 cm; Wt 51.5 kg
[~2018-06-28 09:38] MED LIST changes: +CIPRO250 M2 PO
[2018-06-28] MEDS ORDERED: ARICEPT 5 MG TAB5 MG PO (09:56)
[2018-06-28] MEDS ORDERED: RISPERDAL0.5 MG PO (09:57)
[2018-06-28] MEDS ORDERED: PRESERVISION A1 EACH PO (09:57)
[2018-06-28] MEDS ORDERED: ATIVAN0.5 MG PO (09:57)
[2018-06-28 10:05] LABS: HEMOGLOBIN 11.6 gm/dL (12.0-15.0); MCH 29.8 pg (26.0-34.0); MCHC 33.1 g/dL (28.0-37.0); MCV 89.9 fL (80.0-100.0); NUCLEATED RBCS 0 /100WBC; PLATELET COUNT* 330 thou/uL (150-400); RBC 3.89 mil/uL (4.20-5.00); RDW-CV 19.2 % (10.5-14.5); WBC 11.3 thou/uL (4.0-11.0)
[2018-06-28 10:21] LABS: APTT 24.7 Seconds (25.0-31.3); PROTIME 10.4 Seconds (9.20-11.50)
[2018-06-28 10:22] LABS: ANION GAP 4 mmol/L (7-16); BUN 13 mg/dL (7-18); CALCIUM 8.7 mg/dL (8.5-10.1); CHLORIDE 105 mmol/L (98-107); CO2 33 mmol/L (21-32); CREATININE 1.4 mg/dL (0.6-1.3); GLUCOSE 113 mg/dL (70-99); POTASSIUM 4.3 mmol/L (3.5-5.1); SODIUM 142 mmol/L (136-145); TROPONIN-I LEVEL <0.06 ng/mL (<0.06)
[2018-06-28 10:29] LABS: ALBUMIN 2.8 g/dL (3.4-5.0); ALKALINE PHOSPHATASE 245 U/L (46-116); CK-MB MASS 1.5 ng/mL (<0.5-3.6); NT-PRO BRAIN NAT PEPTIDE 1596 pg/mL (<300); SGOT 23 U/L (15-37); SGPT 16 U/L (30-65); TOTAL BILIRUBIN 0.3 mg/dL (<0.1-1.0); TOTAL PROTEIN 6.7 g/dL (6.4-8.2)
[2018-06-28 10:30] LABS: ABSOLUTE LYMPHOCYTES 0.3 thou/uL (0.8-5.3); ABSOLUTE MONOCYTES 0.6 thou/uL (0.0-1.2); ABSOLUTE NEUTROPHILS 10.4 thou/uL (1.6-8.1)
[2018-06-28 10:31] LABS: HYPOCHROMASIA 1+; MICROCYTES 2+
[2018-06-28 10:32] LABS: PLATELET ESTIMATE ADEQUATE
[2018-06-28 10:56] LABS: URINE BILIRUBIN NEGATIVE (Negative); URINE BLOOD NEGATIVE (Negative); URINE CLARITY CLEAR; URINE COLOR YELLOW; URINE GLUCOSE-RANDOM NEGATIVE (Negative); URINE KETONES NEGATIVE (Negative); URINE LEUKOCYTES-REFLEX NEGATIVE (Negative); URINE NITRITE-REFLEX NEGATIVE (Negative); URINE PROTEIN NEGATIVE (Negative); URINE SPECIFIC GRAVITY 1.015 (1.005-1.030); URINE UROBILINOGEN 0.2 E.U./dl (0.2-1.0)
[2018-06-28 11:31] VITALS: BP 117/55
--- NOTE | 2018-06-29 14:29 | EKG ---
[place] [address] ELECTROCARDIOGRAM REPORT Name: JAQUELINE DALEY Room: [facility]#: [id number] Admission: 06/28/18 Attend Phys: Discharge: 06/28/18 Date of : 35 Report #: [id number] THIS REPORT FOR: //name// [facility] ED Test Date: 2018-06-28 Test Time: 09:47:42 Pat Name: JAQUELINE DALEY Department: Room: Gender: F Well Tender: GARY : 1935 Requested By: Lionel Carrillo Order Number: [id number] MD: Cj Dyer Measurements Intervals [place] Rate: 60 P: 7 HI: 243 QRS: -69 QRSD: 172 T: 93 QT: 472 QTc: 472 Interpretive Statements Atrial-ventricular dual-paced complexes No further analysis attempted due to paced rhythm Compared to ECG 02/13/2018 20:01:54 No significant changes Electronically Signed On 06-29-2018 14:29:38 CDT by Cj Dyer [email or web address] <ELECTRONICALLY SIGNED> By: Cj Dyer MD, [facility] 06/29/18 1429 0947 0947 Cj Dyer MD, [facility] /EPI
== END 2018-06-28 11:35 | disposition short-term general hospital (02) ==
LOC: M.ERS 09:38
PROVIDERS: Family Medicine
DX: S06.6X0A Traumatic subarachnoid hemorrhage without loss of consciousness, initial encounter (principal); S02.40CA Maxillary fracture, right side, initial encounter for closed fracture; S02.31XA Fracture of orbital floor, right side, initial encounter for closed fracture; S02.40EA Zygomatic fracture, right side, initial encounter for closed fracture; F31.9 Bipolar disorder, unspecified; Z90.49 Acquired absence of other specified parts of digestive tract; E03.9 Hypothyroidism, unspecified; F03.90 Unspecified dementia, unspecified severity, without behavioral disturbance, psychotic disturbance, mood disturbance, and anxiety; Z88.2 Allergy status to sulfonamides; Z98.890 Other specified postprocedural states; W18.39XA Other fall on same level, initial encounter; Y93.89 Activity, other specified; Y92.89 Other specified places as the place of occurrence of the external cause; Y99.8 Other external cause status

== ENCOUNTER 2018-08-31 20:51 | Inpatient (IN) | payer OTHER ==
[~2018-08-31] VITALS: Ht 160 cm; Wt 49.0 kg
[~2018-08-31 20:51] MED LIST changes: +ARICEPT 5 MG TAB5 MG PO; +ATIVAN0.5 MG PO; +PRESERVISION A1 EACH PO; +RISPERDAL0.5 MG PO
[2018-08-31 21:03] VITALS: BP 131/73
[2018-08-31 21:54] LABS: HEMATOCRIT 33.8 % (37.0-47.0); HEMOGLOBIN 10.7 gm/dL (12.0-15.0); MCH 29.2 pg (26.0-34.0); MCHC 31.5 g/dL (28.0-37.0); MCV 92.7 fL (80.0-100.0); MPV 7.5 fl. (7.2-11.1); NUCLEATED RBCS 0 /100WBC; PLATELET COUNT* 265 thou/uL (150-400); RBC 3.65 mil/uL (4.20-5.00); RDW-CV 17.2 % (10.5-14.5); WBC 11.2 thou/uL (4.0-11.0)
[2018-08-31 22:01] LABS: CALCIUM 8.7 mg/dL (8.5-10.1); CREATININE 1.5 mg/dL (0.6-1.3); POTASSIUM 4.4 mmol/L (3.5-5.1)
[2018-08-31 22:03] LABS: APTT 25.3 Seconds (25.0-31.3); INR 1.1
[2018-08-31 22:12] LABS: URINE BILIRUBIN NEGATIVE (Negative); URINE BLOOD NEGATIVE (Negative); URINE CLARITY CLEAR; URINE COLOR YELLOW; URINE GLUCOSE-RANDOM NEGATIVE (Negative); URINE KETONES NEGATIVE (Negative); URINE LEUKOCYTES-REFLEX TRACE (Negative); URINE PROTEIN TRACE (Negative); URINE SPECIFIC GRAVITY >= 1.030 (1.005-1.030); URINE UROBILINOGEN 0.2 E.U./dl (0.2-1.0)
[2018-08-31 22:12] LABS: ALBUMIN 2.8 g/dL (3.4-5.0); TOTAL BILIRUBIN 0.3 mg/dL (<0.1-1.0); TOTAL PROTEIN 6.2 g/dL (6.4-8.2)
[2018-08-31 22:13] LABS: URINE NITRITE-REFLEX POSITIVE (Negative)
[2018-08-31 22:19] LABS: HYALINE CASTS >10 Many /LPF (None Seen); SQUAMOUS 4-10 Moderate /LPF (0-3)
[2018-08-31 22:20] LABS: BACTERIA-REFLEX >30 Many /HPF (None Seen); MUCUS 0-3 Light strn/LPF (None Seen); URINE WBC-REFLEX 6-15 Few /HPF (0-5); WBC CLUMPS Few (None Seen)
[2018-08-31 22:21] LABS: CRYSTALS None Seen /LPF (None Seen); URINE RBC 0-2 Rare /HPF (0-2)
[2018-08-31 22:24] LABS: ABSOLUTE LYMPHOCYTES 0.9 thou/uL (0.8-5.3); ABSOLUTE MONOCYTES 0.4 thou/uL (0.0-1.2); ABSOLUTE NEUTROPHILS 9.9 thou/uL (1.6-8.1)
[2018-08-31 22:25] LABS: ANISOCYTOSIS 1+; PLATELET ESTIMATE ADEQUATE
[2018-09-01 02:10] VITALS: BP 119/63
[2018-09-01 05:50] VITALS: BP 118/90
[2018-09-01 10:37] VITALS: BP 123/58
--- NOTE | 2018-09-01 11:23 | EKG ---
[place] [address] ELECTROCARDIOGRAM REPORT Name: JAQUELINE DALEY Room: [place] [address] ADM IN .R.#: [id number] Admission: 08/31/18 Attend Phys: Kyaw Rothman MD Discharge: Date of : 35 Report #: [id number] THIS REPORT FOR: //name// [facility] ED Test Date: 2018-08-31 Test Time: 21:49:08 Pat Name: JAQUELINE DALEY Department: Room: [facility] Gender: F Side Laster Tack: MADALYN : 1935 Requested By: Benedict Mccartney Order Number: [id number] MD: Raúl Donaldson Measurements Intervals [place] Rate: 85 P: -80 MI: 166 QRS: -67 QRSD: 173 T: 91 QT: 453 QTc: 539 Interpretive Statements Atrial-sensed ventricular-paced rhythm No further analysis attempted due to paced rhythm Baseline wander in lead(s) I,III,aVL Compared to ECG 06/28/2018 09:47:42 AV dual-paced complex(es) or rhythm no longer present Electronically Signed On 09-01-2018 11:23:39 CDT by Raúl Donaldson [email or web address] <ELECTRONICALLY SIGNED> By: Raúl Donaldson MD, FACC 09/01/18 1123 48 48 Raúl Donaldson MD, [facility] /EPI
[2018-09-01 18:25] VITALS: BP 110/72
[2018-09-01 20:00] VITALS: BP 89/48
[2018-09-02] VITALS: BP 105/57
[2018-09-02 03:54] LABS: HEMATOCRIT 26.9 % (37.0-47.0)
[2018-09-02 03:56] LABS: HEMOGLOBIN 8.6 gm/dL (12.0-15.0)
[2018-09-02 04:00] VITALS: BP 110/53
[2018-09-02 04:41] LABS: CREATININE 1.2 mg/dL (0.6-1.3); PHOSPHORUS* 3.6 mg/dL (2.5-4.9)
[2018-09-02 08:35] VITALS: BP 90/46
[2018-09-02 08:46] LABS: CALCIUM 7.9 mg/dL (8.5-10.1); CREATININE 1.1 mg/dL (0.6-1.3); POTASSIUM 4.4 mmol/L (3.5-5.1)
[2018-09-02 16:52] VITALS: BP 98/49
[2018-09-03 04:32] LABS: HEMOGLOBIN 8.3 gm/dL (12.0-15.0); MCH 30.8 pg (26.0-34.0); MCHC 33.3 g/dL (28.0-37.0); MCV 92.7 fL (80.0-100.0); MPV 7.9 fl. (7.2-11.1); RBC 2.69 mil/uL (4.20-5.00); RDW-CV 16.9 % (10.5-14.5)
[2018-09-03 04:33] LABS: CALCIUM 7.7 mg/dL (8.5-10.1); MAGNESIUM 1.9 mg/dL (1.8-2.4); POTASSIUM 4.2 mmol/L (3.5-5.1)
[2018-09-03 07:35] VITALS: BP 113/51
[2018-09-03 16:28] VITALS: BP 83/43
[2018-09-03 19:30] VITALS: BP 108/46
[2018-09-04 06:12] VITALS: BP 100/46
[2018-09-04 15:34] VITALS: BP 88/46
[2018-09-04 22:00] VITALS: BP 101/44
[2018-09-05 04:00] VITALS: BP 100/49
[2018-09-05 07:40] VITALS: BP 95/50
[2018-09-05] MEDS ORDERED: CEFUROXIME250 MG PO (07:42)
[2018-09-05] MEDS ORDERED: CALCIUM 600 +1 EAC1 PO (07:42)
[2018-09-05] MEDS ORDERED: COLACE 100 MG100 MG PO (07:42)
[2018-09-05] MEDS ORDERED: ERGOCALCIF50000 UNIT PO (07:42)
[2018-09-05] MEDS ORDERED: ASPIRIN325 PO (07:42)
[2018-09-05] MEDS ORDERED: HYDROCODON-ACE1 EAC7 PO (07:44)
[2018-09-05] MEDS ORDERED: ACETAMINOPHEN325 M1 PO (07:44)
[2018-09-05 11:10] VITALS: BP 95/50
[2018-09-05 19:30] VITALS: BP 104/45
[2018-09-06 07:30] VITALS: BP 92/52
[2018-09-06 10:03] VITALS: BP 95/50
[2018-09-06 12:03] VITALS: BP 95/50
--- NOTE | 2018-09-08 06:49 | OP ---
[address] [address] OPERATIVE REPORT Name: JAQUELINE DALEY Room: [address]#: [id number] Admission: 08/31/18 Attend Phys: Kyaw Rothman MD Discharge: 09/06/18 Date of : 35 Report #: [id number] THIS REPORT FOR: //name// CC: Precious Rothman DICTATED BY: Sergio Fitzgerald DO DATE OF SERVICE: 09/01/2018 PREOPERATIVE DIAGNOSIS: Right closed displaced intertrochanteric fracture. POSTOPERATIVE DIAGNOSIS: Right closed displaced intertrochanteric fracture. PROCEDURES: Open reduction and internal fixation of right intertrochanteric fracture with cephalomedullary nail using orthopedic implants, [place] gamma nail measuring 11 x 180 mm x 125 degrees with appropriately sized lag screw and distal interlock screw. SURGEON: Alejo Rivers DO VESSEL SPECIALIST: Sergio Fitzgerald DO ANESTHESIA: General with local. FLUIDS: Crystalloid per Anesthesia. ESTIMATED BLOOD LOSS: 20 mL. DRAINS: None. SPECIMENS: None. COMPLICATIONS: None apparent. CONDITION: Stable to PACU. DISPOSITION: PACU and then to Med/Surg floor. ANTIBIOTICS: 1 gram Ancef IV piggyback. INDICATIONS FOR PROCEDURE: The patient is a pleasant 82-year-old female with a history of dementia, who resides in an assisted living facility. She unfortunately had a fall last night landing on her right hip, had immediate pain, and was unable to weightbear. She was presented in the [facility] where x-rays were taken demonstrating a displaced [facility] [address] [place] [address] OPERATIVE REPORT Name: JAQUELINE DALEY Sujey Room: [address]#: [id number] Admission: 08/31/18 Attend Phys: Kyaw Rothman MD Discharge: 09/06/18 Date of : 35 Report #: [id number] intertrochanteric fracture. She was met by the Medicine team this morning and they deemed the patient a low-risk candidate for surgery. After discussing the risks and benefits of surgical versus nonoperative management, the patient and her daughter wanted to proceed. We discussed the possible complications including but not limited to malunion, nonunion, infection, need for revision surgery, hardware failure, continued pain, postoperative arthritis, DVT, PE, complications with anesthesia, and other imponderables. The patient and her daughter understood and consent was obtained prior to the procedure. DESCRIPTION OF PROCEDURE: The patient was taken to the operating room and given a benefit of general anesthesia. Next, she was transferred to the [place] fracture table where the right lower extremity was placed in the stirrup leg mandujano and the left lower extremity was placed in the Well-Leg mandujano. Next, closed reduction of the fracture was performed with traction and internal rotation and fluoroscopy confirmed appropriate alignment of the fracture. Next, the right lower extremity was sterilely prepped and draped in the standard fashion. At this point, a surgical time-out was taken indicating the correct patient, procedure, and operative site as well as the administration of antibiotics. All in the room were in agreement and we elected to proceed. We marked out our surgical incision proximal to the greater trochanteric region and approximately a 4 cm incision was made in longitudinal fashion. Sharp dissection was taken down to the IT band and this was incised in line with the incision and then blunt dissection was taken down to the greater trochanter. Next, the guidewire was used to confirm position of the starting point and this was entered down the femoral canal. Fluoroscopy was used to verify a starting point position. Next, the 15-mm reamer was passed over the guidewire to open up the femoral canal. At this point, the ball-tipped guidewire was placed and a sequential reaming of the femoral canal was undertaken using an 11-mm reamer followed by 13-mm reamer. Next, the nail was passed down the femur in the appropriate position. Next, the double sleeve guide was used to place the guidewire for the lag screw in the standard fashion. The guidewire was placed and measured to be an 80 mm lag screw. The lag screw reamer was then used and passed over the guidewire. Next, the 80 mm lag screw was inserted. With the lag screw all the way down, the proximal set screw was placed and locked into position in the static fashion and prior to locking the set screw, compression was performed on the fracture. Next, the triple sleeve guide was used for the distal interlock screw and this was done in a standard fashion using the drill followed by a measuring device and a 32.5 mm distal interlock was then inserted. Next, the aiming arm was disengaged and final fluoroscopy images were taken and saved. At this point, the wounds were thoroughly irrigated with saline. Deep closure of the IT band was performed with 0 Vicryl in a [id number] fashion. Next, the subcutaneous layer was closed with 2-0 Vicryl in an inverted simple suture fashion. Next, the skin was closed using skin melvin. The bandages consisted of Mepilex dressing and Medipore tape. Needle and sponge counts were correct x2 at the end of the procedure. I attest that Dr. Rivers was present for all [place] [id number] OPERATIVE REPORT Name: JAQUELINE DALEY Room: [address]#: [id number] Admission: 08/31/18 Attend Phys: Kyaw Rothman MD Discharge: 09/06/18 Date of : 35 Report #: [id number] critical aspects of the case. The patient was then taken in a stable condition to PACU and then will be transferred to the Med-Surg floor. <ELECTRONICALLY SIGNED> By: Koby Hoskins DO 09/08/18 0649 1358 1454Alejo Rivers DO /nt
== END 2018-09-06 12:05 | DRG 480 ==
LOC: M.ERS 20:51 → M.ORTHSURG 22:11 → M.TBA-ER 22:11 → M.ORTHSURG 09-01 10:38
PROVIDERS: Emergency Medicine; Internal Medicine; Orthopaedic Surgery; ADMIT Family Medicine
PROC: 0QS604Z Reposition Right Upper Femur with Internal Fixation Device, Open Approach (ICD-10-PCS; principal; 2018-09-01)
DX: M80.051A Age-related osteoporosis with current pathological fracture, right femur, initial encounter for fracture (principal); E43 Unspecified severe protein-calorie malnutrition; E87.0 Hyperosmolality and hypernatremia; N39.0 Urinary tract infection, site not specified; Z68.1 Body mass index [BMI] 19.9 or less, adult; F31.9 Bipolar disorder, unspecified; I95.81 Postprocedural hypotension; F03.90 Unspecified dementia, unspecified severity, without behavioral disturbance, psychotic disturbance, mood disturbance, and anxiety; B96.1 Klebsiella pneumoniae [K. pneumoniae] as the cause of diseases classified elsewhere; E03.9 Hypothyroidism, unspecified; W18.39XA Other fall on same level, initial encounter; Y93.89 Activity, other specified; Y92.128 Other place in nursing home as the place of occurrence of the external cause; Y99.8 Other external cause status; Z87.81 Personal history of (healed) traumatic fracture; Z90.49 Acquired absence of other specified parts of digestive tract; Z79.899 Other long term (current) drug therapy; Z88.2 Allergy status to sulfonamides

== ENCOUNTER 2020-05-05 15:11 | Inpatient (IN) | payer OTHER ==
[~2020-05-05] VITALS: Ht 154.9 cm; Wt 49.1 kg
[~2020-05-05 15:11] MED LIST changes: +ACETAMINOPHEN325 M1 PO; +ASPIRIN325 PO; +CALCIUM 600 +1 EAC1 PO; +CEFUROXIME250 MG PO; +COLACE 100 MG100 MG PO; +ERGOCALCIF50000 UNIT PO; +HYDROCODON-ACE1 EAC7 PO
[2020-05-05 15:12] VITALS: BP 106/56
[2020-05-05] MEDS ORDERED: BISACODYL10 MG RECTAL (15:16)
[2020-05-05] MEDS ORDERED: MELATONIN3 M1 PO (15:17)
[2020-05-05] MEDS ORDERED: VITAMIN D250 MCG PO (15:18)
[2020-05-05] MEDS ORDERED: VITAMIN B122500 MCG PO (15:18)
[2020-05-05] MEDS ORDERED: ZOFRAN ODT4 MG PO (15:18)
[2020-05-05 15:39] LABS: URINE BLOOD NEGATIVE (Negative); URINE CLARITY CLEAR; URINE COLOR YELLOW; URINE GLUCOSE-RANDOM TRACE (Negative); URINE KETONES NEGATIVE (Negative); URINE LEUKOCYTES-REFLEX NEGATIVE (Negative); URINE PROTEIN TRACE (Negative); URINE SPECIFIC GRAVITY >= 1.030 (1.005-1.030); URINE UROBILINOGEN 0.2 E.U./dl (0.2-1.0)
[2020-05-05 15:40] LABS: ICTOTEST (BILI CONFIRMATORY) Negative (Negative); URINE BILIRUBIN 1+ (Negative); URINE NITRITE-REFLEX POSITIVE (Negative)
[2020-05-05 15:46] LABS: SQUAMOUS 0-3 Few /LPF (0-3); URINE RBC 0-2 Rare /HPF (0-2); URINE WBC-REFLEX 0-5 Rare /HPF (0-5)
[2020-05-05 15:47] LABS: BACTERIA-REFLEX >30 Many /HPF (None Seen); CRYSTALS None Seen /LPF (None Seen); HYALINE CASTS 0-3 Few /LPF (None Seen); MUCUS None Seen strn/LPF (None Seen)
[2020-05-05 16:01] LABS: HEMATOCRIT 39.7 % (37.0-47.0); HEMOGLOBIN 12.5 gm/dL (12.0-15.0); MCH 28.9 pg (26.0-34.0); MCHC 31.5 g/dL (28.0-37.0); MCV 91.7 fL (80.0-100.0); MPV 7.5 fl. (7.2-11.1); NUCLEATED RBCS 0 /100WBC; PLATELET COUNT* 390 thou/uL (150-400); RBC 4.33 mil/uL (4.20-5.00); RDW-CV 17.7 % (10.5-14.5); WBC 21.8 thou/uL (4.0-11.0)
[2020-05-05 16:02] LABS: CALCIUM 9.3 mg/dL (8.5-10.1); CREATININE 4.2 mg/dL (0.6-1.3); POTASSIUM 3.4 mmol/L (3.5-5.1)
[2020-05-05 16:05] LABS: APTT 21.6 Seconds (25.0-31.3); INR 1.2; PROTIME 12.2 Seconds (9.20-11.50)
[2020-05-05 16:12] LABS: ALBUMIN 2.4 g/dL (3.4-5.0); TOTAL BILIRUBIN 0.3 mg/dL (<0.1-1.0); TOTAL PROTEIN 6.1 g/dL (6.4-8.2)
[2020-05-05 16:45] LABS: ABSOLUTE LYMPHOCYTES 2.4 thou/uL (0.8-5.3); ABSOLUTE MONOCYTES 1.3 thou/uL (0.0-1.2); ABSOLUTE NEUTROPHILS 18.1 thou/uL (1.6-8.1); PLATELET ESTIMATE ADEQUATE
[2020-05-05 16:46] LABS: ANISOCYTOSIS 1+
[2020-05-05 17:20] LABS: CALCIUM 9.2 mg/dL (8.5-10.1); CREATININE 3.9 mg/dL (0.6-1.3); POTASSIUM 3.2 mmol/L (3.5-5.1)
[2020-05-05 17:23] LABS: MAGNESIUM 2.7 mg/dL (1.8-2.4); PHOSPHORUS* 4.6 mg/dL (2.5-4.9)
[2020-05-05 18:29] VITALS: BP 99/49
--- NOTE | 2020-05-05 18:57 | NUR ---
RECEIVED REPORT FROM GEO ZAMBRANO. PT ARRIVED ON UNIT AROUND 184. SET UP IN ROOM. HEART MONITOR ATTACHED. ADMIT ALL READY DONE IN ER. VS CHARTED. PT ALERT TO SELF. Q2 TURNS. IV INTACT RIGHT FOREARM. NS RUNNING. PT LYING IN BED. PACEMAKER INTACT. PT INCONTINENT OF BOWEL AND URINE. REDNESS TO BOTTOM. PT NPO AT THIS TIME. IGNITE MEDICAL RECORDS IN CHART. CALL LIGHT WITHIN REACH. WILL CONTINUE TO MONITOR.
[2020-05-05 19:17] VITALS: BP 98/48
[2020-05-05 21:00] VITALS: BP 79/41
[2020-05-05 23:40] VITALS: BP 90/44
[2020-05-06 04:22] LABS: HEMATOCRIT 33.5 % (37.0-47.0); MCH 30.4 pg (26.0-34.0); MCHC 32.9 g/dL (28.0-37.0); MCV 92.5 fL (80.0-100.0); MPV 7.7 fl. (7.2-11.1); RBC 3.62 mil/uL (4.20-5.00); RDW-CV 17.8 % (10.5-14.5); WBC 15.6 thou/uL (4.0-11.0)
[2020-05-06 04:32] LABS: CALCIUM 7.4 mg/dL (8.5-10.1); POTASSIUM 3.4 mmol/L (3.5-5.1)
[2020-05-06 04:33] LABS: CREATININE 2.6 mg/dL (0.6-1.3)
[2020-05-06 04:37] LABS: ALBUMIN 1.8 g/dL (3.4-5.0); MAGNESIUM 2.3 mg/dL (1.8-2.4); TOTAL BILIRUBIN 0.2 mg/dL (<0.1-1.0); TOTAL PROTEIN 4.8 g/dL (6.4-8.2)
--- NOTE | 2020-05-06 05:05 | NUR ---
Pt AO to self. Pt incontinent of bowel and bladder. Pt had more than 3 loose stool this shift, sample send for c-diff rule out. Pt IVF infusing as ordered. E lyte replaced per protocol. Pt creatine today 2.6 from 3.9. Pt bottom red, barrier cream and q2 turn maintained. Pt denies pain. Safety precaution in placed. Will continue POC.
[2020-05-06 08:00] VITALS: BP 94/37
--- NOTE | 2020-05-06 13:00 | NUR ---
REVIEW OF CHART SHOWS PT.LIVES IN MEMORY CARE UNIT AT THE [facility]. IS NORMALLY IN HER WC.SHE CAN TRANFER WITH ASSIST. SHE NEEDS ASSIST WITH ADL. HER DPOA IS HER DAUGHTER,MARIA DE JESUS [phone]. SHE PLANS FOR PT.TO RETURN THERE AT DISCHARGE.
--- NOTE | 2020-05-06 13:59 | EKG ---
[place] [address] ELECTROCARDIOGRAM REPORT Name: JEFRY DALEYJORIE Sujey Room: [address] IN M.R.#: [id number] Admission: 05/05/20 Attend Phys: Tre Quinonez, Discharge: Date of : 35 Date of Service: 05/05/20 1519 Report #: [id number] THIS REPORT FOR: //name// [facility] ED Test Date: 2020-05-05 Test Time: 15:19:14 Pat Name: JAQUELINE DALEY Department: Room: [facility] Gender: F Pantograph Machine Operator: : 1935 Requested By: Donte Schwartz Order Number: [id number] MD: Cj Dyer Measurements Intervals [place] Rate: 89 P: SC: QRS: -68 QRSD: 198 T: 96 QT: 464 QTc: 565 Interpretive Statements Atrial-sensed ventricular-paced complexes No further rhythm analysis attempted due to paced rhythm IVCD Baseline wander in lead(s) V2 Compared to ECG 08/31/2018 21:49:08 Paced rhythm persists Electronically Signed On 05-06-2020 13:59:04 DRY BOX OPERATOR by Cj Dyer [email or web address] <ELECTRONICALLY SIGNED> By: Cj Dyer MD, FACC 05/06/20 1359 1519 1519 Cj Dyer MD, FAC /EPI
[2020-05-06 14:23] LABS: CALCIUM 8.1 mg/dL (8.5-10.1); CREATININE 2.3 mg/dL (0.6-1.3); POTASSIUM 3.6 mmol/L (3.5-5.1)
--- NOTE | 2020-05-06 14:23 | NUR ---
Nutrition: consult for [facility] diet; pt noted with hx of dementia, oriented to self only. Wt is WNL, stable from 2019 admit. Prealbumin 9.6, Na 155, BUN 48, Cr 2.6. Physician noted pt is not eating much. Will order Ensure with lunch and dinner; assess at mild nutrition risk.
[2020-05-06 15:55] VITALS: BP 124/53
--- NOTE | 2020-05-06 16:00 | NUR ---
WOUND NURSE: PATIENT WITH FREQUENT LIQUID STOOLS 2ND TO CDIFF. RECOMMEND USE OF ZGUARD MOISTURE BARRIER PASTE Q SHIFT AND PRN TO HELP PREVENT IAD BREAKDOWN.
[2020-05-06 16:29] VITALS: BP 107/62
--- NOTE | 2020-05-06 18:50 | NUR ---
ASSUMED PT CARE AT 0730, PT SLEEPING AND NOT RESPONDING TO QUESTIONS, BEING TURNED Q2H. PT WORKED W/ SPEECH TODAY AND SPIT OUT MOST OF FOOD AND FLUIDS BUT DID SWALLOW SOME THICKENED LIQUIDS, NEW DIET ORDERS IN PLACE. OFFERED PT DINNER, PT WOULDN'T UNCLENCH TEETH. ORAL CARE DONE WHEN PT ALLOWED, ALSO KEEPS TEETH CLENCHED SOMETIMES. PT IN ISO FOR CDIFF, BEING CLEANED UP FREQUENTLY AND WORKED W/ WOUND CARE, Z-GUARD BARRIER CREAM NOW BEING USED. PT GOAL IS TO REMAIN FREE FROM SKIN BREAKDOWN AND INCREASE ORAL INTAKE. MEDS PER MAR, HOURLY ROUNDING OBSERVED, FALL PRECAUTIONS IN PLACE, CALL LIGHT W/IN REACH.
[2020-05-06 23:49] VITALS: BP 99/50
[2020-05-07 03:43] VITALS: BP 114/52
[2020-05-07 05:14] LABS: HEMATOCRIT 36.9 % (37.0-47.0); HEMOGLOBIN 11.7 gm/dL (12.0-15.0); MCH 29.1 pg (26.0-34.0); MCHC 31.6 g/dL (28.0-37.0); MCV 92.1 fL (80.0-100.0); MPV 7.2 fl. (7.2-11.1); RBC 4.01 mil/uL (4.20-5.00); RDW-CV 17.6 % (10.5-14.5)
[2020-05-07 05:35] LABS: CREATININE 1.7 mg/dL (0.6-1.3)
[2020-05-07 08:00] VITALS: BP 108/60
[2020-05-07 09:00] VITALS: BP 108/60
[2020-05-07 12:00] VITALS: BP 84/36
[2020-05-07 16:00] VITALS: BP 119/68; BP 88/47
--- NOTE | 2020-05-07 16:28 | NUR ---
PT ROUNDS: PT HAS A SOFT PALATE TUMOR AND CDIFF. DISCUSSED HOSPICE W/FAMILY. CM TO FOLLOW UP.
--- NOTE | 2020-05-07 19:38 | NUR ---
ASSUMED PT CARE AT 0730. POTASSIUM 3.O. PROTOCOL IMPLEMENTED AND LAB ORDER PLACED. NEW POTASSIUN LEVEL IS NOW 4.O. PT MORE ALERT AT BREAKFAST AND LUNCH. SLEEPING THIS AFTERNOON AND EVENING. PT MUST BE FED AND REQUIRES MUCH ENCOURAGEMENT WITH MEALS AND PO MED INTAKE. CODE STATUS CHANGED TODAY TO DNR. PT TURNED AND REPOSITIONED Q2H. SAFETY MEASURES IN PLACE.
[2020-05-07 23:43] VITALS: BP 98/55
[2020-05-08 04:00] VITALS: BP 115/57
[2020-05-08 08:00] VITALS: BP 103/56
[2020-05-08 09:51] LABS: ABSOLUTE BASOPHILS 0.1 thou/uL (0.0-0.2); ABSOLUTE EOSINOPHILS 0.2 thou/uL (0.0-0.7); ABSOLUTE LYMPHOCYTES 1.6 thou/uL (0.8-5.3); ABSOLUTE MONOCYTES 0.5 thou/uL (0.0-1.2); ABSOLUTE NEUTROPHILS 9.9 thou/uL (1.6-8.1); BASOPHILS 0.5 %; EOSINOPHILS 1.2 %; HEMATOCRIT 36.2 % (37.0-47.0); HEMOGLOBIN 11.7 gm/dL (12.0-15.0); LYMPHOCYTES 13.2 %; MCH 29.3 pg (26.0-34.0); MCHC 32.2 g/dL (28.0-37.0); MONOCYTES 3.8 %; MPV 7.5 fl. (7.2-11.1); NUCLEATED RBCS 0 /100WBC; PLATELET COUNT* 321 thou/uL (150-400); POLYS 81.3 %; RBC 3.98 mil/uL (4.20-5.00); RDW-CV 17.5 % (10.5-14.5); WBC 12.2 thou/uL (4.0-11.0)
[2020-05-08 10:03] LABS: ALBUMIN 1.8 g/dL (3.4-5.0); CALCIUM 8.5 mg/dL (8.5-10.1); CREATININE 1.5 mg/dL (0.6-1.3); POTASSIUM 3.8 mmol/L (3.5-5.1); TOTAL BILIRUBIN 0.3 mg/dL (<0.1-1.0); TOTAL PROTEIN 4.9 g/dL (6.4-8.2)
[2020-05-08 11:19] VITALS: BP 96/52
[2020-05-08 16:30] VITALS: BP 97/56
--- NOTE | 2020-05-08 16:30 | NUR ---
CM INFORMED DURING PRIME ROUNDING OF TH EPLAN OF CARE FOR THE PT. PLAN FOR CM TO SPEAK TO PT'S DTR TO DISCUSS OPTIONS FOR HOSPICE. PT'S DTR INFOMRS THAT THE PT CURRENTLY RESIDES AT [facility] AND THE PLAN IS FOR HER TO RETURN THERE WITH HOSPICE. PT'S DTR ALSO INFORMS THAT THE PT HAD PREVIOUSLY BEEN ON-SERVICE WITH [facility] AND SHE WOULD LIKE FOR HER TO HAVE [facility] AT D/C. CM FAXED [facility] PT'S CLINICAL INFO AND HOSPICE EVAL AND TRAT ORDER. CM WILL REMAIN AVAILABLE TO ASSIST AND FOLLOW NEEDED. [facility] PHONE: [phone] FAX: [phone] [facility] PHONE: [phone] FAX: [phone]
--- NOTE | 2020-05-08 19:01 | NUR ---
PT CONFUSED THIS SHIFT. PT ATE ICE CREAM THIS AM. ALSO, HAD A FEW BITES THIS AFTERNOON FOR LUNCH. PT TURNS SELF AT TIMES. POOR APPETITE. SISTER AT BEDSIDE THIS AFTERNOON. PT SLEPT MUCH OF THIS SHIFT. WILL CONTINUE TO MONIOR.
[2020-05-08 20:30] VITALS: BP 103/54
[2020-05-09 00:48] VITALS: BP 99/57
[2020-05-09 04:29] LABS: ABSOLUTE BASOPHILS 0.1 thou/uL (0.0-0.2); ABSOLUTE EOSINOPHILS 0.4 thou/uL (0.0-0.7); ABSOLUTE LYMPHOCYTES 1.5 thou/uL (0.8-5.3); ABSOLUTE MONOCYTES 0.5 thou/uL (0.0-1.2); ABSOLUTE NEUTROPHILS 7.2 thou/uL (1.6-8.1); BASOPHILS 0.6 %; EOSINOPHILS 4.6 %; HEMATOCRIT 33.2 % (37.0-47.0); HEMOGLOBIN 10.7 gm/dL (12.0-15.0); LYMPHOCYTES 15.3 %; MCH 29.6 pg (26.0-34.0); MCHC 32.2 g/dL (28.0-37.0); MCV 92.1 fL (80.0-100.0); MONOCYTES 4.8 %; MPV 7.6 fl. (7.2-11.1); NUCLEATED RBCS 0 /100WBC; PLATELET COUNT* 302 thou/uL (150-400); POLYS 74.7 %; RBC 3.61 mil/uL (4.20-5.00); RDW-CV 17.7 % (10.5-14.5); WBC 9.6 thou/uL (4.0-11.0)
[2020-05-09 04:51] LABS: ALBUMIN 1.6 g/dL (3.4-5.0); CALCIUM 8.2 mg/dL (8.5-10.1); CREATININE 1.3 mg/dL (0.6-1.3); POTASSIUM 3.8 mmol/L (3.5-5.1); TOTAL BILIRUBIN 0.3 mg/dL (<0.1-1.0); TOTAL PROTEIN 4.4 g/dL (6.4-8.2)
[2020-05-09 05:03] LABS: PREALBUMIN 6.8 mg/dL (18.0-35.7)
--- NOTE | 2020-05-09 06:46 | NUR ---
Oriented x 1 and drowsy. She has dementia, she is cooperative and pleasant. Vitals are stable, V paced in the monitor. Shehas been given mouthcare every 2 hours. She has taken oral meds with chocolate pudding, crushed. She is incontinent of B&B, buttocks are red and barrier cream applied. Turned every 2 hours. She has slept throughout the shift.
[2020-05-09 08:00] VITALS: BP 118/53
[2020-05-09] MEDS ORDERED: VANCOMYCIN HCL125 MG PO (11:43)
[2020-05-09] MEDS ORDERED: CEFUROXIME500 MG PO (11:48)
--- NOTE | 2020-05-09 13:40 | NUR ---
CM INFORMED DURING PRIME ROUNDING OF THE PLAN OF CARE FOR THE PT. PLAN FOR THE PT TO D/C TODAY BACK TO HER LTC BED AT [facility] WITH HOSPICE EVAL AND TREAT ON ARRIVAL. CM SPOKE TO THE PT'S DTR TO INFORM OF THE PT'S D/C AND SHE IS IN AGREEMENT. PHYSICIAN SPOKE TO THE PT'S DTR WELL TO PROVIDE CLINICAL UPDATE. CM SPOKE TO IS'S TO INFORM OF PT'S RETURN, AND INFORMED [facility] OF PT'S D/C AND FAXED PT'S D/C ORDERS. CM ARRANGED [facility] NON-EMERGENT TRANSPORT FOR 1400. CM INFORMED THE RN IN-CHARGE OF THE PT OF THE PT'S TIME OF D/C AND WHERE TO CALL REPORT. CM WILL REMAIN AVAILABLE TO ASSIST AND FOLLOW NEEDED. [facility] PHONE: [phone] [facility] PHONE: [phone]
--- NOTE | 2020-05-09 14:31 | NUR ---
ASSUMED PT CARE AT 0730, PT AO TO SELF ONLY, OTHERWISE CONFUSED AND FORGETFUL. NO C/O PAIN. PT BEING TURNED Q2H, ATE MOST OF BREAKFAST BUT REFUSED LUNCH. TAKES PILLS CRUSHED IN APPLESAUCE OR PUDDING. PT TOLERATING NECTAR THICK LIQUIDS WELL. DC ORDERS RECEIVED, RAPID COVID DONE, NEGATIVE. PT DC'D BY EMS TO IGNITE BS LTC AT APPROX 1410 W/ ALL PAPERWORK AND PERSONAL BELONGINGS. I CALLED FACILITY AND ATTEMPTED TO GIVE REPORT TO RECEIVING NURSE BUT NO ONE ANSWERED.
== END 2020-05-09 14:10 | DRG 871 ==
LOC: M.ERS 15:11 → M.TBA-ER 16:38 → M.2W 16:38
PROVIDERS: Emergency Medicine Emergency Medical Services; Internal Medicine; ADMIT Internal Medicine; ATTEND Internal Medicine
DX: A41.9 Sepsis, unspecified organism (principal); E43 Unspecified severe protein-calorie malnutrition; G92 Toxic encephalopathy; N17.0 Acute kidney failure with tubular necrosis; R53.2 Functional quadriplegia; N39.0 Urinary tract infection, site not specified; E87.0 Hyperosmolality and hypernatremia; A04.72 Enterocolitis due to Clostridium difficile, not specified as recurrent; Z20.822 Contact with and (suspected) exposure to COVID-19; F31.9 Bipolar disorder, unspecified; F03.90 Unspecified dementia, unspecified severity, without behavioral disturbance, psychotic disturbance, mood disturbance, and anxiety; E03.9 Hypothyroidism, unspecified; E86.9 Volume depletion, unspecified; E86.0 Dehydration; E87.6 Hypokalemia; R62.7 Adult failure to thrive; Z90.49 Acquired absence of other specified parts of digestive tract; Z87.81 Personal history of (healed) traumatic fracture; Z88.2 Allergy status to sulfonamides; Z68.20 Body mass index [BMI] 20.0-20.9, adult